=== PATIENT | male | born 2000 | race African-American/Black ===

== ENCOUNTER 2025-07-06 03:10 | Emergency (ER) | payer OTHER ==
[~2025-07-06] VITALS: Ht 185.4 cm; Wt 82.7 kg
[2025-07-06 03:27] VITALS: BP 96/68; PULSE 97; RESP 16; TEMP 98.8; O2SAT 98
== END 2025-07-06 03:34 | disposition home or self-care (01) ==
LOC: EMS 03:14
DX: Z00.8 Encounter for other general examination (principal); Z53.21 Procedure and treatment not carried out due to patient leaving prior to being seen by health care provider
CPT/HCPCS: 99283